=== PATIENT | female | born 1985 | race Caucasian/White ===

== ENCOUNTER 2023-10-26 17:43 | Emergency (ER) | payer BC ==
[2023-10-26 18:03] VITALS: BP 116/66; PULSE 80; RESP 20; TEMP 98.6; O2SAT 96
[2023-10-26] MEDS ORDERED: Rocephin 1000 MG INJ ONE (20:15)
--- NOTE | 2023-10-26 20:15 | ERPHSYRPT ---
- History of Present Illness Time Seen by Provider: 10/26/23 19:00 Source: patient Exam Limitations: no limitations Patient Subjective Stated Complaint: PT HERE FOR SWELLING TO LEFT SIDE OF FACE FOR 24 HOURS, SHE STATES SHEIS UNSURE IF IT IS CAUSED BY A TOOTH Triage Nursing Assessment: PT ALERT, WALKED IN, RESP EASY, SWEELING TO LEFT SIDE OF FACE WITH SOME REDNESS UNDER LEFT EYE, SHE HAS MULTI DENTAL CARIES AND BROKEN TEETH Physician History: Patient is a 38-year-old female presents to the emergency department for evaluation of left-sided facial swelling x 1 day. Patient has multiple carious teeth and believes that the swelling is due to a dental infection. No trauma no fever no headache no neck pain no photophobia. Pain described as an ache that is localized. Pain reproduced by percussion to tooth #13. Patient denies trauma. She declined pain medication. Patient otherwise feels well. She voices no other complaints or concerns at this time. Portions of this note were created with voice recognition technology. There may be grammatical, spelling, punctuation or sound alike errors Timing/Duration: yesterday Severity: moderate Modifying Factors: Improves With: other Associated Symptoms: denies symptoms Allergies/Adverse Reactions: No Known Drug Allergies Allergy (Unverified 10/26/23 17:58) Home Medications: Sertraline HCl [Zoloft] 1 ea DAILY 10/26/23 [History] Hx Tetanus, Diphtheria Vaccination/Date Given: No Hx Influenza Vaccination/Date Given: Yes Hx Pneumococcal Vaccination/Date Given: No Immunizations Up to Date: Yes Travel Risk - International Travel Have you traveled outside of the country in past 3 weeks: No - Emerging Infectious Disease Are you exhibiting symptoms associated with any current EIDs: No - Review of Systems Constitutional: No Symptoms, No Fever, No Chills Eyes: No Symptoms Ears, Nose, & Throat: No Symptoms Respiratory: No Symptoms, No Cough, No Dyspnea Cardiac: No Symptoms, No Chest Pain, No Edema, No Syncope Abdominal/Gastrointestinal: No Symptoms, No Abdominal Pain, No Nausea, No Vomiting, No Diarrhea Genitourinary Symptoms: No Symptoms, No Dysuria Musculoskeletal: No Symptoms, No Back Pain, No Neck Pain Skin: No Symptoms, No Rash Neurological: No Symptoms, No Dizziness, No Focal Weakness, No Sensory Changes Psychological: No Symptoms Endocrine: No Symptoms Hematologic/Lymphatic: No Symptoms Immunological/Allergic: No Symptoms All Other Systems: Reviewed and Negative - Past Medical History Pertinent Past Medical History: No - Past Surgical History Past Surgical History: Yes Female Surgical History: Tubal Ligation - Female History Hx Last Menstrual Period: NOW Hx Now: No - Social History Smoking Status: Never smoker Exposure to second hand smoke: Yes Drug Use: none - Nursing Vital Signs Nursing Vital Signs: Initial Vital Signs Temperature 98.6 F 10/26/23 18:02 Pulse Rate 80 10/26/23 18:02 Respiratory Rate 20 10/26/23 18:02 Blood Pressure 116/66 10/26/23 18:02 O2 Sat by Pulse Oximetry 96 10/26/23 18:02 Pain Scale Pain Intensity 4 - Physical Exam General Appearance: no apparent distress, alert Eye Exam: PERRL/EOMI, eyes nml inspection Ears, Nose, Throat Exam: normal ENT inspection, TMs normal, pharynx normal, moist mucous membranes, other (Dental abscess at tooth #13. There is gingival swelling tenderness. Patient has multiple carious and fractured teeth. No cervical lymphadenopathy) Neck Exam: normal inspection, non-tender, supple, full range of motion Respiratory Exam: normal breath sounds, lungs clear, airway intact, No respir atory distress Cardiovascular Exam: regular rate/rhythm, normal heart sounds, normal peripheral pulses Gastrointestinal/Abdomen Exam: soft, normal bowel sounds, No tenderness, No mass Back Exam: normal inspection, normal range of motion, No CVA tenderness, No vertebral tenderness Extremity Exam: normal inspection, normal range of motion, pelvis stable Neurologic Exam: alert, oriented x 3, cooperative, normal mood/affect, nml cerebellar function, nml station & gait, sensation nml, No motor deficits Skin Exam: normal color, warm, dry, No rash Lymphatic Exam: No adenopathy SpO2 Interpretation: normal SpO2: 96 O2 Delivery: Room Air - Course Nursing assessment & vital signs reviewed: Yes Ordered Tests: Medication Summary Discontinued Medications Generic Name Dose Route Start Last Admin Trade Name Edinsonq PRN Reason Stop Dose Admin Ceftriaxone Sodium 1,000 mg 10/26/23 20:13 10/26/23 20:19 Ceftriaxone Sodium 1000 Mg Inj Vial IM 10/26/23 20:14 1,000 mg STAT ONE Administration Ceftriaxone Sodium Confirm 10/26/23 20:15 Ceftriaxone Sodium 1000 Mg Inj Vial Administered 10/26/23 20:16 Dose 1,000 mg .ROUTE .STK-MED ONE Lidocaine HCl Confirm 10/26/23 20:16 Lidocaine Hcl 1% 20 Ml Mdv 20 Ml Ml Administered 10/26/23 20:17 Dose 3 ml .ROUTE .STK-MED ONE - Progress Progress: improved Progress Note: 38-year-old female presents to our ED with 1 day history of left-sided facial swelling. There is a dental abscess at tooth #13. Patient inclined pain medication. Patient received a dose of Rocephin IM in our ED. A prescription for Augmentin forwarded to patient's pharmacy. Patient agrees to follow-up with a dentist within 48 hours for evaluation. She voices no other complaints or concerns at this time. Portions of this note were created with voice recognition technology. There may be grammatical, spelling, punctuation or sound alike errors Complexity of problem addressed is moderate acute complicated No critical care time Complexity of data reviewed and analyzed is none. Diagnosis made based on history and physical examination. No specialized testing ordered. Risk of complication and or risk of morbidity/mortality of patient management is moderate. A prescription for Augmentin forwarded to patient's pharmacy. Vital stable. Time spent to discharge patient is approximately 20 minutes. Plan of care established for shared decision making. No social determinants of health present impede follow-up. Portions of this note were created with voice recognition technology. There may be grammatical, spelling, punctuation or sound alike errors 10/26/23 20:28 Counseled pt/family regarding: diagnosis, need for follow-up - Departure Departure Disposition: Home Clinical Impression: Dental abscess, Facial swelling Condition: Stable Critical Care Time: No Referrals: BOBBI CORONADO NP [Primary Care Provider] - Follow up/PCP as directed Additional Instructions: Discharge/Care Plan PASTORA MENDOZA was seen on 10/26/23 in the Emergency Room. The patient was counseled regarding Diagnosis,Lab results, Imaging studies, need for follow up and when to return to the Emergency Room. Prescriptions given: Discharge Note I have spoken with the patient and/or caregivers. I have explained the patient's condition, diagnosis and treatment plan based on the information available to me at this time. I have answered the patient's and/or caregiver's questions and addressed any concerns. The patient and/or caregivers have as good understanding of the patient's diagnosis, condition and treatment plan as can be expected at this point. The vital signs have been stable. The patient's condition is stable and appropriate for discharge from the emergency department. The patient will pursue further outpatient evaluation with the primary care physician or other designated or consulting physician as outlined in the discharge instructions. The patient and/or caregivers are agreeable to this plan of care and follow-up instructions have been explained in detail. The patient and/or caregivers have received these instruction. The patient/and or caregivers are aware that any significant change in condition or worsening of symptoms should prompt an immediate return to this or the closest emergency department or call 911. Prescriptions: Amox Tr/Potass Clav. 875 mg [Augmentin 875-125 Tablet] 875 mg PO BID 7 Days #14 tablet
[2023-10-26] MEDS ORDERED: XYLOCAINE 1% HCL 20 ML MDV ONE (20:16)
[2023-10-26] MEDS: Rocephin 1000 MG INJ IM ONE (20:19)
== END 2023-10-26 20:42 | disposition home or self-care (01) ==
LOC: ED 17:43
DX: K04.7 Periapical abscess without sinus (principal); R22.0 Localized swelling, mass and lump, head; K08.89 Other specified disorders of teeth and supporting structures; Z79.899 Other long term (current) drug therapy
CPT/HCPCS: 96372; 99282; J0696